=== PATIENT | male | born 1945 | race Caucasian/White ===

== ENCOUNTER 2025-04-11 12:41 | Emergency (ER) | payer MEDICARE ==
[~2025-04-11] VITALS: Ht 175.3 cm; Wt 81.2 kg
[2025-04-11 13:31] LABS: BASOPHILS % 0.5 % (0.0-1.0); EOSINOPHILS % 2.1 % (0.0-6.0); LYMPHOCYTES % 16.8 % (18.0-39.1); MONOCYTES % 7.7 % (4.4-11.3); NEUTROPHILS % 72.6 % (38.7-80.0); RED CELL DISTRIBUTION WIDTH 13.7 % (11.7-14.4)
[2025-04-11 13:52] LABS: EST GLOMERULAR FILTRATION RATE 80.0 ML/MIN (>=60)
[2025-04-11 14:34] LABS: LEUKOCYTE ESTERASE ,URINE SMALL (NEGATIVE); PROTEIN,URINE DIPSTICK NEGATIVE (NEGATIVE); URINE UROBILINOGEN 4 mg/dL (0.2 - 1)
[2025-04-11] MEDS ORDERED: CEFTRIAXONE 1 GM VIAL ONE (15:10)
[2025-04-11] MEDS ORDERED: CEPHALEXIN500 MG PO (15:29)
[2025-04-11 17:10] VITALS: PULSE 49; RESP 16; TEMP 98.2; O2SAT 100
== END 2025-04-11 17:21 ==
LOC: ER 12:59
DX: R30.0 Dysuria (principal); N39.0 Urinary tract infection, site not specified; R00.1 Bradycardia, unspecified; I10 Essential (primary) hypertension; I25.10 Atherosclerotic heart disease of native coronary artery without angina pectoris; E78.5 Hyperlipidemia, unspecified; K21.9 Gastro-esophageal reflux disease without esophagitis; F32.A Depression, unspecified; F03.90 Unspecified dementia, unspecified severity, without behavioral disturbance, psychotic disturbance, mood disturbance, and anxiety; R94.31 Abnormal electrocardiogram [ECG] [EKG]; Z95.1 Presence of aortocoronary bypass graft
CPT/HCPCS: 36415; 80053; 81001; 84484; 85025; 87086; 87186; 93005; 99284; J0696